=== PATIENT | male | born 1950 | race Caucasian/White ===

== ENCOUNTER 2021-09-17 23:00 | Inpatient (IN) | payer MEDICARE, OTHER ==
[~2021-09-17] VITALS: Ht 170.2 cm; Wt 91.8 kg
[2021-09-18] MEDS ORDERED: METFORMIN HCL1000 MG PO (05:28)
[2021-09-18] MEDS ORDERED: COZAAR 25MG TAB25 MG PO (05:28)
[2021-09-18] MEDS ORDERED: MAXI VISION PO (05:29)
[2021-09-18] MEDS ORDERED: MAXI VISION (05:29)
[2021-09-18 06:06] LABS: HEMOGLOBIN 15.2 gm/dl (14.0-17.5); RED BLOOD COUNT 5.3 M/UL (4.20-5.50); WHITE BLOOD COUNT 8.2 K/UL (4.5-11.0)
--- NOTE | 2021-09-18 07:29 | NUR ---
RT ON FLOOR AND NOTIFIED OF STAT EKG ORDER
[2021-09-18 09:01] LABS: BUN/CREATININE RATIO 21 (0-10)
[2021-09-18] MEDS ORDERED: ASPIRIN 325MG325 MG PO (09:43)
[2021-09-18] MEDS ORDERED: LOPRESSOR 50 MG50 MG PO (09:43)
[2021-09-18] MEDS ORDERED: ATORVASTATIN CA20 MG PO (12:03)
== END 2021-09-18 16:27 | disposition short-term general hospital (02) | DRG 280 ==
LOC: PROG CARE 09-18 05:10
PROVIDERS: Internal Medicine Cardiovascular Disease; ADMIT Internal Medicine
PROC: 4A023N7 Measurement of Cardiac Sampling and Pressure, Left Heart, Percutaneous Approach (ICD-10-PCS; principal; 2021-09-18)
PROC: B2111ZZ Fluoroscopy of Multiple Coronary Arteries using Low Osmolar Contrast (ICD-10-PCS; 2021-09-18)
PROC: B2151ZZ Fluoroscopy of Left Heart using Low Osmolar Contrast (ICD-10-PCS; 2021-09-18)
PROC: B24BZZZ Ultrasonography of Heart with Aorta (ICD-10-PCS; 2021-09-18)
PROC: 8E0ZXY6 Isolation (ICD-10-PCS; 2021-09-18)
DX: I21.4 Non-ST elevation (NSTEMI) myocardial infarction (principal); U07.1 COVID-19; I47.1 Supraventricular tachycardia; I25.10 Atherosclerotic heart disease of native coronary artery without angina pectoris; E11.9 Type 2 diabetes mellitus without complications; E78.5 Hyperlipidemia, unspecified; I10 Essential (primary) hypertension; E66.9 Obesity, unspecified; M19.90 Unspecified osteoarthritis, unspecified site; I08.1 Rheumatic disorders of both mitral and tricuspid valves; Z79.4 Long term (current) use of insulin; Z79.82 Long term (current) use of aspirin; Z87.891 Personal history of nicotine dependence; Z68.31 Body mass index [BMI] 31.0-31.9, adult
CPT/HCPCS: ECHO; 36415; 80048; 80061; 82550; 82553; 84484; 85025; 85610; 85730; 93005; 93306; 99152; C1769; C1894; J1644; J2250; J3010; J7040; Q9965